=== PATIENT | female | born 1990 | race African-American/Black ===

== ENCOUNTER 2020-03-19 23:14 | Inpatient (IN) ==
[2020-03-19] MEDS ORDERED: LACTATED RINGERS 1,000 ML IV SCH (23:45)
[2020-03-19] MEDS ORDERED: ONDANSETRON 4 MG/2 ML VIAL IV PRN (23:51)
[2020-03-19] MEDS ORDERED: BUTORPHANOL 1 MG/ML VIAL IV PRN (23:53)
[2020-03-19] MEDS ORDERED: BUTORPHANOL 2 MG/ML VIAL IV PRN (23:53)
[2020-03-19] MEDS ORDERED: MEPERIDINE 50 MG/1 ML VIAL IM PRN (23:53)
[2020-03-20 00:07] LABS: Apearance,Urine CLEAR (Clear); Bilirubin,Urine Negative (Negative); Blood, Urine Negative (Negative); Glucose,Urine (UA) Negative (Negative); Ketones,Urine Negative (Negative); Mucus,Urine Occasional /LPF (Occasional); Nitrite,Urine Negative (Negative); Protein,Urine Negative; RBC,Urine 2 /HPF (0-4); Squamous Epithelial Cell,Urine Occasional /HPF (0-10); Urine Color Yellow (Yellow); Urine Specific Gravity 1.009 (1.001-1.035); Urine Urobilinogen < 2.0 EU/DL (0.2-1.0); WBC,Urine 1 /HPF (0-6)
[2020-03-20 00:09] LABS: Basophils % 0.3 % (0.0-0.8); Eosinophils # 0.2 10*3/uL (0.0-0.87); Eosinophils % 1.3 % (0.00-10.9); Hematocrit 30.5 VOL% (35.7-47.0); Hemoglobin 10.4 GM/DL (12.0-16.0); Immature Granulocytes % 1.2 %; Immature Granulocytes Absolute 0.14 #; Lymphocytes # 1.9 10*3/uL (1.4-4.0); Lymphocytes % 15.7 % (21.3-54.2); Mean Corpuscular HGB Conc 34.1 GM/DL (32-36); Mean Corpuscular Volume 89.2 FL (87-102); Monocytes % 8.7 % (1.7-12.7); Neutrophils % 72.8 % (38.7-73.9); Platelet Count 278 T/CUMM (130-400); Red Blood Count 3.42 MC/CUMM (3.8-5.5); Red Cell Distribution Width 13.1 % (9.3-17.3); White Blood Count 11.8 T/CUMM (4-12)
[2020-03-20] MEDS ORDERED: FAMOTIDINE 20 MG TABLET PO ONE (00:14)
[2020-03-20] MEDS ORDERED: hydrOXYzine HCL 25 MG/1 ML VIAL IM PRN (00:14)
[2020-03-20] MEDS ORDERED: PROMETHAZINE 25 MG/1 ML VIAL IM ONE (00:14)
[2020-03-20] MEDS ORDERED: diphenhydrAMINE 50 MG/1 ML VIAL IV PRN ×2 (00:14)
[2020-03-20] MEDS ORDERED: ONDANSETRON 4 MG/2 ML VIAL IV ONE (00:14)
[2020-03-20] MEDS ORDERED: ePHEDrine 50 MG/ML AMP IV PRN (00:14)
[2020-03-20] MEDS ORDERED: LACTATED RINGERS 1,000 ML IV ONE (00:14)
[2020-03-20] MEDS ORDERED: CITRIC ACID/SODIUM CITRATE 30 ML UDCUP PO ONE (00:14)
[2020-03-20] MEDS ORDERED: NALOXONE 0.4 MG/ML VIAL IV PRN (00:14)
[2020-03-20] MEDS ORDERED: fentaNYL 2 MCG/ROPIV 0.2% EPID 100 ML EPIDURAL ONE (00:18)
[2020-03-20] MEDS ORDERED: CITRIC ACID/SODIUM CITRATE 30 ML UDCUP ONE (00:18)
[2020-03-20] MEDS ORDERED: FAMOTIDINE 20 MG/2 ML VIAL IV ONE (00:19)
[2020-03-20] MEDS ORDERED: LACTATED RINGERS 1,000 ML IV SCH (00:30)
[2020-03-20] MEDS ORDERED: fentaNYL 2 MCG/ROPIV 0.2% EPID 100 ML EPIDURAL SCH (00:30)
[2020-03-20] MEDS ORDERED: OXYTOCIN/LR 20 UNIT/1,000 ML BAG IV ONE ×2 (00:34→02:04)
[2020-03-20] MEDS ORDERED: miSOPROStoL 200 MCG TABLET ONE (00:34)
[2020-03-20] MEDS ORDERED: CARBOPROST TROMETHAMINE 250 MCG/ML AMP IM ONE (00:35)
[2020-03-20] MEDS ORDERED: LIDOCAINE 1% 50 ML VIAL ONE (00:35)
[2020-03-20] MEDS ORDERED: METHYLERGONOVINE 0.2 MG/1 ML AMP ONE (00:35)
[2020-03-20] MEDS ORDERED: HYDROCORTISONE 2.5% RECTAL CREAM 30 GM TUBE TOP PRN (02:04)
[2020-03-20] MEDS ORDERED: ACETAMINOPHEN 325 MG TABLET PO PRN (02:04)
[2020-03-20] MEDS ORDERED: oxyCODONE/ACETAMINOPHEN 5-325 MG TABLET PO PRN (02:04)
[2020-03-20] MEDS ORDERED: MEASLES/MUMPS/RUBELLA VACCINE 0.5 ML VIAL SUBCUT ONE (02:04)
[2020-03-20] MEDS ORDERED: WITCH HAZEL PADS 100/JAR TOP PRN (02:04)
[2020-03-20] MEDS ORDERED: LANOLIN 50% CREAM 0.3 OZ TUBE TOP PRN (02:04)
[2020-03-20] MEDS ORDERED: BISACODYL 10 MG SUPP RECTAL PRN (02:04)
[2020-03-20] MEDS ORDERED: DIPH/TET/ACEL PERT BOOSTER VACCINE 0.5 ML VIAL IM ONE (02:04)
[2020-03-20] MEDS ORDERED: RHO(D) IMMUNE GLOBULIN 300 MCG SYRINGE IM ONE (02:04)
[2020-03-20] MEDS ORDERED: ONDANSETRON 4 MG/2 ML VIAL IV PRN (02:04)
[2020-03-20] MEDS ORDERED: BENZOCAINE 20%/MENTHOL 0.5% SPRAY 56 GM CAN TOP PRN (02:04)
[2020-03-20] MEDS: IBUPROFEN 800 MG TABLET PO PRN ×2 (03:53→15:52)
[2020-03-20] MEDS: oxyCODONE/ACETAMINOPHEN 5-325 MG TABLET PO PRN ×2 (03:53→15:53)
[2020-03-20 04:32] LABS: Basophils % 0.2 % (0.0-0.8); Eosinophils # 0.1 10*3/uL (0.0-0.87); Eosinophils % 0.3 % (0.00-10.9); Hematocrit 29.4 VOL% (35.7-47.0); Hemoglobin 10.1 GM/DL (12.0-16.0); Immature Granulocytes % 0.9 %; Immature Granulocytes Absolute 0.16 #; Lymphocytes # 1.2 10*3/uL (1.4-4.0); Lymphocytes % 6.5 % (21.3-54.2); Mean Corpuscular HGB Conc 34.4 GM/DL (32-36); Mean Corpuscular Volume 89.1 FL (87-102); Mean Platelet Volume 9.3 FL (9.6-12.0); Monocytes % 5.4 % (1.7-12.7); Neutrophils % 86.7 % (38.7-73.9); Platelet Count 249 T/CUMM (130-400); White Blood Count 18.7 T/CUMM (4-12)
[2020-03-20] MEDS ORDERED: OXYTOCIN/LR 20 UNIT/1,000 ML BAG IV SCH (05:00)
[2020-03-20 06:09] LABS: Hepatitis B Surface Ag Quant 0.77 Index; Hepatitis B Surface Ag Result Negative (Negative)
[2020-03-20 07:25] LABS: HIV Antigen/Antibody Result Nonreactive (Nonreactive)
[2020-03-20] MEDS: DOCUSATE SODIUM 100 MG CAPSULE PO SCH ×2 (09:30→20:38)
[2020-03-21 06:45] LABS: Basophils % 0.4 % (0.0-0.8); Eosinophils # 0.2 10*3/uL (0.0-0.87); Eosinophils % 1.8 % (0.00-10.9); Hematocrit 26.1 VOL% (35.7-47.0); Hemoglobin 8.9 GM/DL (12.0-16.0); Immature Granulocytes % 1.3 %; Immature Granulocytes Absolute 0.12 #; Lymphocytes % 21.2 % (21.3-54.2); Mean Corpuscular HGB Conc 34.1 GM/DL (32-36); Mean Corpuscular Volume 90.3 FL (87-102); Mean Platelet Volume 9.9 FL (9.6-12.0); Monocytes % 6.8 % (1.7-12.7); Neutrophils % 68.5 % (38.7-73.9); Platelet Count 233 T/CUMM (130-400); Red Blood Count 2.89 MC/CUMM (3.8-5.5); White Blood Count 9.6 T/CUMM (4-12)
[2020-03-21] MEDS: DOCUSATE SODIUM 100 MG CAPSULE PO SCH (09:47)
[2020-03-21 13:16] VITALS: BP 118/70
== END 2020-03-21 14:30 | disposition home or self-care (01) | DRG 560 ==
LOC: N.LDOUT 23:14 → N.LD 23:17 → N.OB 03-20 04:54
PROVIDERS: ADMIT Obstetrics & Gynecology; ATTEND Obstetrics & Gynecology